=== PATIENT | female | born 2000 | race Two or more races ===

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

== ENCOUNTER 2022-01-20 12:51 | Outpatient (CLI) | payer OTHER | END 2022-01-20 12:52 | disposition home or self-care (01) | LOC: EDBD 12:51 → SONOGRAMA 12:51 | PROVIDERS: ATTEND Student in an Organized Health Care Education/Training Program | DX: R10.2 Pelvic and perineal pain (principal) ==